=== PATIENT | female | born 1995 | race Caucasian/White ===

== ENCOUNTER 2018-04-01 16:53 | Inpatient (IN) | payer MEDICAID ==
[~2018-04-01] VITALS: Ht 158.8 cm; Wt 70.8 kg
[2018-04-01] MEDS ORDERED: LACTATED RINGERS 1000ML 1,000 ML IV PRN (17:40)
[2018-04-01] MEDS ORDERED: OXYTOCIN-LR 20 UNITS/1000 ML 1,000 ML IV SCH (17:45)
[2018-04-01 17:55] LABS: HEMATOCRIT 36.9 % (36-48); MEAN CORPUSCULAR HEMOGLOBIN 29.5 pg (27.0-33.0); MEAN CORPUSCULAR HGB CONC 33.8 g/dL (32.0-36.0); MEAN CORPUSCULAR VOLUME 87.1 fL (79-99); PLATELET COUNT (AUTO) 119 K/uL (130-400); RED BLOOD CELL COUNT(AUTO) 4.24 MIL/uL (4.00-5.50); RED CELL DISTRIBUTION WIDTH 13.9 % (11.0-15.5); WHITE BLOOD COUNT (AUTO) 12.5 K/uL (4.8-10.8)
[2018-04-02] VITALS (7 sets, daily range): BP systolic 101–129; BP diastolic 58–82
[2018-04-02] MEDS ORDERED: PROMETHAZINE HCL 25 MG/ML 1ML AMPULE IM PRN
[2018-04-02] MEDS ORDERED: LACTATED RINGERS 500 ML 500 ML IV PRN (00:15)
[2018-04-02] MEDS ORDERED: NALOXONE HCL 0.4 MG/1 ML ML IV PRN (00:15)
[2018-04-02] MEDS ORDERED: EPHEDRINE SULFATE 50 MG/ML AMPULE IVP PRN (00:15)
[2018-04-02] MEDS ORDERED: MEPERIDINE-PF 50 MG/ML SYG IVP PRN (00:15)
[2018-04-02] MEDS ORDERED: LACTATED RINGERS 1000ML 1,000 ML IV ONE (03:51)
[2018-04-02] MEDS ORDERED: OXYTOCIN 10 USP UNITS/ML ONE (03:52)
[2018-04-02] MEDS ORDERED: OXYTOCIN 10 USP UNITS/ML 20 UNIT in LACTATED RINGERS 1000ML 1,000 ML IV SCH (05:00)
[2018-04-02] MEDS ORDERED: AMPICILLIN 2GM+NS 100ML 100 ML IV ONE (06:45)
[2018-04-02] MEDS: AMPICILLIN 2GM+NS 100ML 100 ML IV SCH ×2 (06:45→21:02)
[2018-04-02] MEDS ORDERED: SILVER NITRATE APPLICATOR 1 SWAB TP ONE (07:08)
[2018-04-02] MEDS ORDERED: DIPH,PERTUSS(ACELL),TET VAC/PF 0.5 ML VIAL IM PRN (08:15)
[2018-04-02] MEDS ORDERED: WITCH HAZEL 1 PAD TP PRN (08:15)
[2018-04-02] MEDS ORDERED: LANOLIN 30GM OINTMENT TP PRN (08:15)
[2018-04-02] MEDS ORDERED: BENZOCAINE/LANOLIN/ALOE VERA 60 ML AEROSOL TP PRN (08:15)
[2018-04-02] MEDS ORDERED: ACETAMINOPHEN 325 MG TAB PO PRN (08:15)
[2018-04-02] MEDS: DOCUSATE SODIUM 100 MG CAP PO SCH ×2 (08:50→20:51)
[2018-04-02] MEDS: IBUPROFEN 600 MG TABLET PO PRN ×3 (08:58→23:54)
[2018-04-03 00:42] VITALS: BP 134/80
[2018-04-03 04:50] VITALS: BP 112/74
[2018-04-03 05:44] LABS: MEAN CORPUSCULAR HEMOGLOBIN 30.1 pg (27.0-33.0); MEAN CORPUSCULAR HGB CONC 34.6 g/dL (32.0-36.0); MEAN CORPUSCULAR VOLUME 86.8 fL (79-99); PLATELET COUNT (AUTO) 128 K/uL (130-400)
[2018-04-03 07:26] VITALS: BP 99/51
[2018-04-03 07:32] LABS: HEPATITIS Bs ANTIGEN SCREEN P Negative (Negative)
[2018-04-03] MEDS: DOCUSATE SODIUM 100 MG CAP PO SCH (08:21)
[2018-04-03] MEDS: IBUPROFEN 600 MG TABLET PO PRN (08:22)
[2018-04-03 11:42] VITALS: BP 100/60
== END 2018-04-03 12:30 | disposition home or self-care (01) | DRG 560 ==
LOC: LDH 16:53 → OBSVTOIN 16:53 → WSH 04-02 07:25
PROVIDERS: ADMIT Obstetrics & Gynecology; ATTEND Obstetrics & Gynecology
PROC: 10E0XZZ Delivery of Products of Conception, External Approach (ICD-10-PCS; principal; 2018-04-02)
PROC: 0W8NXZZ Division of Female Perineum, External Approach (ICD-10-PCS; 2018-04-02)
PROC: 3E0234Z Introduction of Serum, Toxoid and Vaccine into Muscle, Percutaneous Approach (ICD-10-PCS; 2018-04-02)
PROC: 3E0R3BZ Introduction of Anesthetic Agent into Spinal Canal, Percutaneous Approach (ICD-10-PCS; 2018-04-02)
PROC: 00HU33Z Insertion of Infusion Device into Spinal Canal, Percutaneous Approach (ICD-10-PCS; 2018-04-02)
DX: O80 Encounter for full-term uncomplicated delivery (principal); Z23 Encounter for immunization; Z37.0 Single live birth; Z3A.38 38 weeks gestation of pregnancy
CPT/HCPCS: 36415; 85027; 86592; 86850; 86900; 86901; 87340; 90715; A4314; A4606; J0290; J2590; J7120